=== PATIENT | female | born 1965 | race Caucasian/White ===

== ENCOUNTER 2016-10-22 06:26 | Day surgery (SDC) | payer BC ==
[~2016-10-22 06:26] MED LIST: Lactated Ringers 1,000 ML IV SCH
[2016-10-22] MEDS ORDERED: fentaNYL 100 MCG/2 ML SDV ONE (07:50)
[2016-10-22] MEDS ORDERED: Propofol 200 MG/20 ML SDV ONE (07:50)
--- NOTE | 2016-10-22 08:49 | OR ---
DATE OF SURGERY: 10/22/2016. REFERRING PROVIDER: Juli Swann MD. PRE-OPERATIVE DIAGNOSES: Screening colonoscopy. This is 1st colonoscopy. There is no known family history of colon cancer. POST-OPERATIVE DIAGNOSES: 1. Moderate diverticulosis, left greater than right. 2. Otherwise normal colon without any polyps. PROCEDURE: Colonoscopy. SURGEON: Juan Gunderson M.D. ANESTHESIA: Monitored anesthesia care. BOWEL PREP: Good. DESCRIPTION OF PROCEDURE: Pat is a 50-year-old female. The patient was brought to the endoscopy suite after discussing risks and benefits of the procedure. Informed consent was obtained for conscious sedation and colonoscopy with or without biopsy and/or polypectomy. We also discussed possibility of missed lesions. Pre-procedure exam was unremarkable. IV, oxygen, and monitors were placed. The patient was placed in the left lateral decubitus position. Sedation was administered and a digital rectal exam was performed which was unremarkable. Colonoscope was passed into the rectum and slowly advanced all the way to the cecum. Cecum was viewed and photographed. The colonoscope was slowly withdrawn and the mucosa was closed observed in a direct circumferential manner. There was diffuse diverticulosis noted most prominent in the sigmoid and descending colon. Otherwise, the ascending colon unremarkable. The transverse colon was unremarkable. The descending colon was unremarkable. The sigmoid colon was unremarkable. Retroflexion was performed and rectal mucosa was unremarkable. Scope was removed. The patient tolerated the procedure well. The patient was monitored until that baseline status. Discharge instructions were reviewed and the patient was discharged in good condition. COMPLICATIONS: None. TOTAL TIME: 20 minutes. ESTIMATED BLOOD LOSS: None. RECOMMENDATIONS/FOLLOW-UP: Recommend considering repeat colonoscopy in 10 years barring any interim change in family history or symptoms. I would like to kindly thank Juli Swann for this referral. DMB: 10/22/2016 08:35:03 MODL: 10/22/2016 08:45:43 /[id number]
[2016-10-22 09:54] VITALS: BP 136/76
== END 2016-10-22 09:57 | disposition home or self-care (01) ==
LOC: VM.SDS 06:26
PROVIDERS: ATTEND Family Medicine
DX: Z12.11 Encounter for screening for malignant neoplasm of colon (principal); K57.30 Diverticulosis of large intestine without perforation or abscess without bleeding; F32.9 Major depressive disorder, single episode, unspecified; Z88.0 Allergy status to penicillin; Z72.0 Tobacco use; Z79.899 Other long term (current) drug therapy; Z98.890 Other specified postprocedural states; Z98.51 Tubal ligation status; F17.210 Nicotine dependence, cigarettes, uncomplicated
CPT/HCPCS: G0121; J2704; J3010; J7120